=== PATIENT | female | born 1990 | race Caucasian/White ===

== ENCOUNTER 2022-08-23 14:18 | Observation (INO) ==
[2022-08-23 14:34] VITALS: BMI 47.0
[2022-08-23] MEDS ORDERED: NS 1,000 ML IV 1,000 ML IV ONE (14:50)
--- NOTE | 2022-08-23 14:50 | ED.ABDFE ---
HPI Time Seen Time Seen by Provider: 08/23/22 14:42 PCP Primary Care Physician: ANGELO Reed Doctors Chief Complaint Comments: 32 y/o female presents for evaluation. Developed sudden onset of RLQ abdominal pain yesterday afternoon while driving. Pain has persisted. Is sharp, does not radiate. Is worse with palpation, moving. Slightly better if doesn't move. + associated nausea, decreased appetite. + vomited once after eating lunch today. No known fever, had chills early this am. Chief Complaint:: PT STATES YESTERDAY AROUND 5PM SHE STARTED HAVING PAIN IN HER RIGHT ABDOMEN. KEPT HER UP THROUGH THE NIGHT LAST NIGHT. UNABLE TO HOLD DOWN HER LUNCH TODAY; SHE VOMITTED AFTER EATING AND HAS BEEN NAUSEATED EVER SINCE SHE ATE LUNCH. CAN HOLD FLUIDS DOWN WHEN DRINKING. PT DESCRIBES PAIN LATERAL TO HER UMBILICUS, SHARP SHOOTING PAIN TO TOUCH AND "BRUISE". SHE STATES IT HURTS WHEN SHE PRESSES ON HER ABDOMEN. SHE STATES THE ONLY TIME SHE GETS RELIEF FROM PAIN IS WHEN SHE IS SITTING STILL. VOIDING W/O DIFFICULTY, PT STATES SHE HAD ONE EPISODE OF DIARRHEA THIS AM AROUND 0500 AM Self Treatment fo Chief Complaint: TUMS THIS MORNING DID NOT RELIEVE HER PAIN AROUND 0730 AM COVID-19 Coronavirus risk:travel/contact w/high risk person: No Has patient experienced Coronavirus symptoms: No Reviewed Nurses Notes Review: Yes Source History Provided: Patient Mode of arrival Mode of Arrival: Ambulatory Timing Onset of Chief Complaint: 08/22/22 PMH PMH Past Medical History: Yes Past Medical History: Anxiety, Diabetes and Dyslipidemia Past Medical History Comment: OBESITY Past Surgical History: Yes Surgical History: PROCESSING [employer] Surgery and Ortho Surgery Family History History of Family Medical Conditions: Yes Family Medical History: Diabetes Mellitus, Cancer, [place], Coronary Artery Disease and Hypertension Social History Does any household member use tobacco: No Alcohol Use: None Do you use any recreational Drugs:: No Lives With: Family Lives Where: Home Travel Risk Coronavirus risk:travel/contact w/high risk person: No Has patient experienced Coronavirus symptoms: No Infectious screening In the last 2 months have you had wt loss of >10#?: NO Have you had fever, night sweats or hemotysis?: No Have you traveled outside the country in the last 6 months?: No Isolation: Standard ROS Review of Systems Constitutional: Chills and Loss of Appetite Eyes: No Symptoms Reported ENTM: No Symptoms Reported Respiratoy: No Symptoms Reported Cardiovascular: No Symptoms Reported Gastrointestinal/Abdominal: Abdominal Pain, Nausea and Vomiting Genitourinary: No Symptoms Reported Neurological: No Symptoms Reported Musculoskeletal: No Symptoms Reported Integumentary: No Symptoms Reported Hematologic/Lymphatic: No Symptoms Reported All Other Systems: Reviewed and Negative PE Vital Signs Vitals: Temperature 98.7 F Pulse Rate [Left Brachial] 114 Pulse Rate 120 Respiratory Rate 17 Blood Pressure [Left Arm] 130/79 Blood Pressure 120/77 O2 Sat by Pulse Oximetry 99 General General Appearance: Alert and In No Apparent Distress Eyes Eye exam: PERRL and EOMI ENT ENT Exam: Mucous Membranes Moist Neck Neck Exam: Normal Inspection Respiratory Respiratory Exam: Normal Lung Sounds Bilat; negative Accessory Muscle Use or Respiratory Distress Cardiovascular Cardiovascular Exam: Regular Rate, Normal Rhythm and Normal Heart Sounds Abdominal Exam Abdominal Exam: Normal Bowel Sounds, Soft and Tenderness (RLQ, with guarding and rebound. Back - no CVA tenderness.) Back Back Exam: Normal Inspection Extremeties Extremities Exam: Normal Inspection Neurologic Neurological Exam: Alert, Oriented X3 and CN II-XII Intact; negative Motor Sensory Deficit Skin Skin Exam: Warm and Dry MDM Differential Diagnosis Differential Diagnosis- Considerations may include:: Appendicitis, Diverticular disease, Ectopic , Ovarian cyst/torsion, Urinary tract infection and Urolithiasis COURSE Treatment Treatment: 32 y/po female with RLQ past 22 hours. + guarding and rebound. W/u initiated. Givne IV fluids, IV zofran. 1730 - labs acceptable, WBC normal. CT of the abd/pelvis w/IV contrast interpreted by radiology as concerning for early appennditis, has enlarged appendix with mild stranding. Does have a nearby R adnexal cyst. Discussed with surgery, Dr Key, he will admit for observation. ROR Labs Reviewed Laboratory Results Reviewed?: Yes Result Diagrams: 08/23/22 15:00 08/23/22 15:00 Laboratory: WBC 7.5 X10^3/uL (3.6-10.0) 08/23/22 15:00 RBC 4.48 X10^6/uL (3.5-5.4) 08/23/22 15:00 Hgb 12.4 g/dL (12.0-16.0) 08/23/22 15:00 Hct 37.1 % (36.0-47.0) 08/23/22 15:00 MCV 82.9 fL (80.0-100.0) 08/23/22 15:00 MCH 27.6 pg (27.0-34.0) 08/23/22 15:00 MCHC 33.4 g/dL (33.0-35.0) 08/23/22 15:00 RDW 13.2 % (11.6-16.5) 08/23/22 15:00 Plt Count 352 X10^3/uL (150.0-450.0) 08/23/22 15:00 MPV 7.4 fL (7.4-11.0) 08/23/22 15:00 Neut % (Auto) 57.0 % (42.0-75.0) 08/23/22 15:00 Lymph % (Auto) 33.1 % (21.0-51.0) 08/23/22 15:00 [place] % (Auto) 8.3 % (0.0-13.0) 08/23/22 15:00 Eos % (Auto) 0.8 % (0.9-2.9) L 08/23/22 15:00 Baso % (Auto) 0.8 % (0.2-1.0) 08/23/22 15:00 Neut # (Auto) 4.3 x10^3/uL (2.2-4.8) 08/23/22 15:00 Lymph # (Auto) 2.5 X10^3/uL (1.3-2.9) 08/23/22 15:00 [place] # (Auto) 0.6 x10^3/uL (0.3-0.8) 08/23/22 15:00 Eos # (Auto) 0.1 x10^3/uL (0.0-0.2) 08/23/22 15:00 Baso # (Auto) 0.1 X10^3/uL (0.0-0.1) 08/23/22 15:00 Absolute Nucleated RBC 0.0 /100WBC 08/23/22 15:00 Sodium 138 mmol/L (136-145) 08/23/22 15:00 Corrected Sodium TNP 08/23/22 15:00 Potassium 3.7 mmol/L (3.5-5.1) 08/23/22 15:00 Chloride 101 mmol/L (98-107) 08/23/22 15:00 Carbon Dioxide 33.3 mmol/L (21-32) H 08/23/22 15:00 BUN 7 mg/dL (7-18) 08/23/22 15:00 Creatinine 0.71 mg/dL (0.55-1.02) 08/23/22 15:00 Est GFR (MDRD) Af Amer > 60 (>60) 08/23/22 15:00 Est GFR (MDRD) Non-Af > 60 (>60) 08/23/22 15:00 Glucose 81 mg/dL (65-99) 08/23/22 15:00 Calcium 9.0 mg/dL (8.5-10.1) 08/23/22 15:00 Corrected Calcium TNP 08/23/22 15:00 Total Bilirubin 0.40 mg/dL (0.2-1.0) 08/23/22 15:00 AST 24 Units/L (15-37) 08/23/22 15:00 ALT 32 Units/L (12-78) 08/23/22 15:00 Alkaline Phosphatase 94 Units/L (46-116) 08/23/22 15:00 Total Protein 7.6 g/dL (6.4-8.2) 08/23/22 15:00 Albumin 3.6 g/dL (3.4-5.0) 08/23/22 15:00 Globulin 4.0 g/dL (2.5-4.5) 08/23/22 15:00 Albumin/Globulin Ratio 0.9 Ratio (1.1-2.1) L 08/23/22 15:00 Lipase 111 Units/L (73-393) 08/23/22 15:00 HCG, Qual Negative <10 mIU/mL 08/23/22 15:00 Specimen Type Clean catch urine 08/23/22 14:40 Urine Color Yellow (YELLOW) 08/23/22 14:40 Urine Appearance Clear (CLEAR) 08/23/22 14:40 Urine pH 6.0 (5.0 - 8.0) 08/23/22 14:40 Ur Specific [place] 1.020 (1.000-1.030) 08/23/22 14:40 Urine Protein Negative (NEGATIVE) 08/23/22 14:40 Urine Glucose (UA) Negative (NEGATIVE) 08/23/22 14:40 Urine Ketones Negative (NEGATIVE) 08/23/22 14:40 Urine Blood 2+ (NEGATIVE) 08/23/22 14:40 Urine Nitrite Negative (NEGATIVE) 08/23/22 14:40 Urine Bilirubin Negative (NEGATIVE) 08/23/22 14:40 Urine Urobilinogen 1+ (NORMAL) 08/23/22 14:40 Ur Leukocyte Esterase Negative (NEGATIVE) 08/23/22 14:40 Urine RBC 3-5 /HPF (0-3) A 08/23/22 14:40 Urine WBC None seen /HPF (0-5) 08/23/22 14:40 Ur Squamous Epith Cells Rare /HPF (NEGATIVE) 08/23/22 14:40 Urine Bacteria Trace /HPF (NEGATIVE) 08/23/22 14:40 Ur Culture Indicated? No/not indicated 08/23/22 14:40 Labs acceptable XRAY XRAY Interpreted by: Radiologist X-ray Results: possible early appendicitis, With adjacent R adnexal cyst Opioid Opioid Risk Tool Age (Ravi box if 16-45): Yes History of Preadolescent Sexual Abuse: No Total: 1 Total Score Risk Category: Low Risk Copyright: Gamal CALERO predicting aberrant behaviors Discharge Plan Diagnosis Discharge Problem: Abdominal pain, RLQ Discharge Plan Patient Disposition: 30 STILL A PATIENT Condition: Stable Prescriptions: No Action rosuvastatin 10 mg tablet 10 mg PO QPM Health Concerns: Post Hospitalization: new medications and changes needed to prevent readmission or further decline. Pt educated and given instructions on all concerns. Plan of Treatment: Continue with present treatment and follow up plan. Pt is to keep follow up appointment as instructed and take medications as ordered. Orders to Discharge Patient Discharge Orders: Transfer (Routine); Ordered 08/23/22 Ordered By: Ky Arias Follow ups/Referrals Follow ups/Referrals: RICHARD STEPHENS [Primary Care Provider] - 3 days
[2022-08-23 14:51] LABS: BILIRUBIN,URINE NEGATIVE (NEGATIVE); BLOOD/HEMOGLOBIN,URINE 2+ (NEGATIVE); GLUCOSE, URINE NEGATIVE (NEGATIVE); KETONES,URINE NEGATIVE (NEGATIVE); LEUKOCYTE ESTERASE ,URINE NEGATIVE (NEGATIVE); NITRITES,URINE NEGATIVE (NEGATIVE); PROTEIN,URINE NEGATIVE (NEGATIVE); UROBILINOGEN,URINE 1+ (NORMAL)
[2022-08-23] MEDS ORDERED: NS 1,000 ML IV 1,000 ML ONE (14:56)
[2022-08-23 15:00] LABS: APPEARANCE,URINE CLEAR (CLEAR); BACTERIA,URINE TRACE /HPF (NEGATIVE); COLOR,URINE YELLOW (YELLOW); SQUAMOUS EPITHELIAL CELL,UR RARE /HPF (NEGATIVE)
[2022-08-23 15:14] LABS: BASOPHILS # (AUTO) 0.1 X10^3/uL (0.0-0.1); BASOPHILS % (AUTO) 0.8 % (0.2-1.0); EOSINOPHILS # (AUTO) 0.1 x10^3/uL (0.0-0.2); EOSINOPHILS % (AUTO) 0.8 % (0.9-2.9); HEMATOCRIT 37.1 % (36.0-47.0); HEMOGLOBIN 12.4 g/dL (12.0-16.0); LYMPHOCYTES # (AUTO) 2.5 X10^3/uL (1.3-2.9); LYMPHOCYTES % (AUTO) 33.1 % (21.0-51.0); MEAN CORPUSCULAR HEMOGLOBIN 27.6 pg (27.0-34.0); MEAN CORPUSCULAR HGB CONC 33.4 g/dL (33.0-35.0); MEAN CORPUSCULAR VOLUME 82.9 fL (80.0-100.0); MEAN PLATELET VOLUME 7.4 fL (7.4-11.0); MONOCYTES # (AUTO) 0.6 x10^3/uL (0.3-0.8); MONOCYTES % (AUTO) 8.3 % (0.0-13.0); NEUTROPHILS # (AUTO) 4.3 x10^3/uL (2.2-4.8); RED BLOOD COUNT 4.48 X10^6/uL (3.5-5.4); RED CELL DISTRIBUTION WIDTH 13.2 % (11.6-16.5); WHITE BLOOD COUNT 7.5 X10^3/uL (3.6-10.0)
[2022-08-23] MEDS ORDERED: ZOFRAN INJ 4 MG VIAL IVP ONE (15:19)
[2022-08-23 15:20] LABS: SERUM PREGNANCY TEST, QUAL NEGATIVE <10 mIU/mL
[2022-08-23 15:24] LABS: ALANINE AMINOTRANSFERASE 32 Units/L (12-78); ALBUMIN 3.6 g/dL (3.4-5.0); ALKALINE PHOSPHATASE 94 Units/L (46-116); ASPARTATE AMINO TRANSFERASE 24 Units/L (15-37); BLOOD UREA NITROGEN 7 mg/dL (7-18); CARBON DIOXIDE 33.3 mmol/L (21-32); CHLORIDE 101 mmol/L (98-107); CREATININE 0.71 mg/dL (0.55-1.02); LIPASE 111 Units/L (73-393); SODIUM 138 mmol/L (136-145); TOTAL PROTEIN 7.6 g/dL (6.4-8.2); eGFR NON BLACK RACES > 60 (>60)
[2022-08-23] MEDS ORDERED: ZOFRAN INJ 4 MG VIAL ONE (15:40)
--- NOTE | 2022-08-23 16:54 | CT ---
HISTORYRLQ PAINSTUDYABDOMEN/PELVIS WITH CONCOMPARISONDecember 2019TECHNIQUEMultiple axial images of the abdomen and pelvis were obtained from the lung bases to the pubic symphysis after the administration of IV contrast. Dose reduction techniques including Automated Exposure Control (AEC) and adjustment of mA and kV were utilized.FINDINGSThe visualized portions of the lung bases are unremarkable . The liver, spleen, pancreas, kidneys, and adrenal glands are unremarkable in their CT appearance. The gallbladder is unremarkable in its CT appearance . No significant mesenteric lymphadenopathy or stranding can be observed. No free fluid or free air is seen within the abdomen. No bowel wall thickening or bowel dilatation is present. The colon is unremarkable. Specifically, there is no diverticulosis noted within the sigmoid colon there is a complex adnexal cyst on the right ovary measuring 4.8 by 4.0 cm. This could represent the patient's pain however the appendix is also noted just superior to this level measuring up to 8 mm at its base.. There also is some faint periappendiceal stranding and some tiny nodes in the right lower quadrant mesentery. The possibility of early appendicitis should be considered however given the associated adnexal cyst this could represent a hemorrhagic cyst or less likely torsion or possible tubo-ovarian abscess. Clinical correlation laboratory value and surgical follow-up will be needed. Correlation with ultrasound may also be needed. An IUD is noted in the uterus. The urinary bladder is grossly unremarkable. The bony structures are grossly intact.IMPRESSION4.8 cm right adnexal cyst with differential considerations as above. The appendix also is borderline enlarged near its base with some faint stranding and small nodes in the right lower quadrant mesentery appear possibility of early acute appendicitis could also give this appearance. Clinical correlation with laboratory values and surgical evaluation will be needed. Correlation with ultrasound may also prove be of benefitElectronically signed by: RAPHAEL PERAZA (Aug 23, 2022 16:52:25)
[2022-08-23] MEDS: D5 1/2 NS 1,000 ML 1,000 ML IV SCH (19:48)
[2022-08-24] MEDS: D5 1/2 NS 1,000 ML 1,000 ML IV SCH ×2 (02:15→10:46)
[2022-08-24 04:53] LABS: BASOPHILS % (AUTO) 0.7 % (0.2-1.0); EOSINOPHILS # (AUTO) 0.1 x10^3/uL (0.0-0.2); EOSINOPHILS % (AUTO) 1.7 % (0.9-2.9); HEMOGLOBIN 11.3 g/dL (12.0-16.0); LYMPHOCYTES # (AUTO) 2.3 X10^3/uL (1.3-2.9); LYMPHOCYTES % (AUTO) 37.2 % (21.0-51.0); MEAN CORPUSCULAR HEMOGLOBIN 28.3 pg (27.0-34.0); MEAN CORPUSCULAR HGB CONC 34.2 g/dL (33.0-35.0); MEAN CORPUSCULAR VOLUME 82.7 fL (80.0-100.0); MEAN PLATELET VOLUME 7.4 fL (7.4-11.0); MONOCYTES # (AUTO) 0.5 x10^3/uL (0.3-0.8); MONOCYTES % (AUTO) 8.1 % (0.0-13.0); NEUTROPHILS # (AUTO) 3.3 x10^3/uL (2.2-4.8); NEUTROPHILS % (AUTO) 52.3 % (42.0-75.0); RED BLOOD COUNT 3.99 X10^6/uL (3.5-5.4); RED CELL DISTRIBUTION WIDTH 13.2 % (11.6-16.5); WHITE BLOOD COUNT 6.2 X10^3/uL (3.6-10.0)
[2022-08-24 05:08] LABS: ALANINE AMINOTRANSFERASE 31 Units/L (12-78); ALKALINE PHOSPHATASE 81 Units/L (46-116); ASPARTATE AMINO TRANSFERASE 27 Units/L (15-37); BLOOD UREA NITROGEN 4 mg/dL (7-18); CALCIUM 7.9 mg/dL (8.5-10.1); CARBON DIOXIDE 34.7 mmol/L (21-32); CHLORIDE 103 mmol/L (98-107); COR CA(FOR HYPOALB) 8.7 mg/dL (8.5-10.1); COR NA(FOR HYPERGLY) 141 mmol/L (136-145); CREATININE 0.67 mg/dL (0.55-1.02); SODIUM 140 mmol/L (136-145); TOTAL PROTEIN 6.5 g/dL (6.4-8.2); eGFR NON BLACK RACES > 60 (>60)
[2022-08-24] MEDS ORDERED: POTASSIUM CHL 40 MEQ/NS 0.45% 500 ML IV PRN (05:24)
[2022-08-24] MEDS ORDERED: MICRO K EXTEN CAP 10 MEQ PO PRN (05:24)
[2022-08-24] MEDS ORDERED: K-DUR TAB 20 MEQ PO PRN (05:24)
[2022-08-24] MEDS ORDERED: POTASSIUM CHLORIDE LIQ 20 MEQ UDC PO PRN (05:24)
[2022-08-24] MEDS ORDERED: POTASSIUM CHL 60 MEQ/NS 0.45% 500 ML IV PRN (05:24)
[2022-08-24] MEDS ORDERED: KLOR-CON PO PRN (05:24)
[2022-08-24] MEDS: K-RIDER 10 MEQ/NS 100 ML 10 MEQ/100 ML BAG IV PRN ×2 (05:39→07:35)
[2022-08-24 07:19] VITALS: BP 114/57
[2022-08-24] MEDS: MAGNESIUM SULFATE 1 GRAM/100 mL PREMIX 1 G/100 ML BAG IV PRN ×2 (09:01→10:04)
== END 2022-08-24 11:15 | disposition home or self-care (01) ==
LOC: MED/SURG 14:18 → ER 14:18 → MED/SURG 19:15
PROVIDERS: ADMIT Surgery; ATTEND Surgery
DX: E66.9 Obesity, unspecified; E78.5 Hyperlipidemia, unspecified; R10.32 Left lower quadrant pain; N83.291 Other ovarian cyst, right side; F41.9 Anxiety disorder, unspecified; E11.9 Type 2 diabetes mellitus without complications